=== PATIENT | male | born 1945 | race African-American/Black ===

== ENCOUNTER 2017-02-03 11:07 | Emergency (ER) | payer MEDICARE, MEDICAID ==
[~2017-02-03] VITALS: Ht 175.3 cm; Wt 80.0 kg
[2017-02-03] MEDS ORDERED: CHLORPROMAZINE HCL 25MG/1ML AMP IM ONE (13:00)
[2017-02-03 15:22] VITALS: BP 105/60
== END 2017-02-03 15:23 | disposition home or self-care (01) ==
LOC: ER 11:46
DX: R06.6 Hiccough (principal); E11.9 Type 2 diabetes mellitus without complications; I10 Essential (primary) hypertension; K21.9 Gastro-esophageal reflux disease without esophagitis; Z88.0 Allergy status to penicillin; Z87.891 Personal history of nicotine dependence
CPT/HCPCS: 96372; 99283; J3230